=== PATIENT | female | born 1995 | race Caucasian/White ===

== ENCOUNTER 2025-01-18 13:15 | Emergency (ER) | payer OTHER, SELFPAY ==
--- NOTE | ~2025-01-18 | XR_ITS ---
EXAMINATION: XR foot LT min 3V, 01/18/2025 13:54 CDT HISTORY: HYPEREXTENSION INJURY, GEN MIDFOOT PAIN, LAT HINDFOOT SWELL. COMPARISON: No comparisons available. Findings: No acute fracture or malalignment. No significant degenerative changes. Soft tissues unremarkable. Impression: No acute fracture or malalignment. Reviewed, dictated and finalized at location A. Impression: No acute fracture or malalignment.
[2025-01-18 13:25] VITALS: BP 136/78; PULSE 93; RESP 18; TEMP 36.2; O2SAT 100
--- OUTSIDE RECORDS SUMMARY | 2025-01-18 13:27 | XMS_ITS | Encounter Summary ---
Author Organization [facility] Healthcare Address [address] [place] [address] Care Team Providers Care Repairer Engine Production Name Role Phone No, Physician Primary Care Provider [phone] Encounter Details Date Type Department Care Team (Late st Contact Info) Description 01/03/2025 Results Follow-Up [facility] Medical Group Convenient Care at [address] [place] [phone] Lisa Estevez, INSERTING OPERATOR [address] [place] [address] Urine culture Urine, bladder Social History Tobacco Use Types Packs/Day Years Used Date Smoking Tobacco: Former Cigarettes Smokeless Tobacco: Never Comments:Smoking History Pac ks/day: 0.5 Packs Alcohol Use Standard Drinks/Week Comments No 0 (1 standard drink = 0.6 oz pur e alcohol) Personal Safety Answer Date Recorded Have you ever been in or are you currently in a harmful physical or emotional relationship or is someone making you feel afraid or unsafe? 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 Pt was called as well . * Result Encounter Note - Matthew Antonio MA - 01/05/2025 8:52 AM CDT Left voicemail to return call. * Result Encounter Note - Ria Ritchie NP - 01/04/2025 12:13 PM CDT Preliminary report. No antibiotic prescribed, Flexeril was prescribed for lower back pain. documented in this encounter Plan of Treatment Not on file documented as of this encounter Visit Diagnoses Not on filedocumented in this encounter Care Teams Repairer Engine Production Relationship Specialty Start Date End Date No, Physician PCP - General 02/23/19 documented as of this encounter
--- OUTSIDE RECORDS SUMMARY | 2025-01-18 13:27 | XMS_ITS | Clinical Summary ---
Author Organization [facility] Address [address] [place] [address] Phone Care Team Providers Care Clerical Aide Teacher Name Role Phone Lovely Jordan APRN, MASTIC WORKER Primary Care Provider [phone] Allergies Active Allergy Reactions Criticality Noted Date Comments Penicillin G Hives High Reaction: Hives, Penicillins Hives High 03/05/2016 Medications Vit-Fe Fumarate-FA ( VITAMIN PO) Take by mouth. Act fatmata naproxen (NAPROSYN) 500 MG TabletIndicatio ns:Acute bilateral low back pain without sciatica Take 1 Tab by mouth 2 times daily (with meals). 30 Tab 07/27/19 20 Active Additional Information Patient not taking.Reported on 01/16/2025 albuterol 108 (90 Base) MCG/ACT Aerosol Solution take 2 Puffs by inhalation every 4 hours as needed (shortness of breath). 8.5 g 06/02/19 21 Active Additional Information Patient not taking.Reported on 01/16/2025 ibuprofen (MOTRIN) 600 MG Tablet Take 600 mg by mouth. 09/14/19 21 Active albuterol (ProAir HFA) 108 (90 Base) MCG/ACT Aerosol SolutionIndicat ions:Cough take 2 Puffs by inhalation every 4 hours as needed for Wheezing or Cough. 18 g 03/02/20 21 Active Additional Information Patient not taking.Reported on 01/16/2025 amphetamine-dex troamphetamine (ADDERALL XR) 15 MG CAPSULE SR 24 HR Take 15 mg by mouth every morning. 03/07/20 24 Active dicyclomine (BENTYL) 20 MG Tablet Take 1 Tablet by mouth every 6 hours. 30 Tablet 04/11/20 24 Active Additional Information Patient not taking.Reported on 01/16/2025 amphetamine-dex troamphetamine (ADDERALL XR) 25 MG CAPSULE SR 24 HR take 1 capsule by mouth daily in the morning 12/16/19 25 Active methylPREDNISol one (MEDROL) 4 MG Tablet 6 tabs day 1, 5 tabs day 2, 4 tabs day 3, 3 tabs day 4, 2 tabs day 5, 1 tab day 6 21 Tablet 01/17/20 25 025 Active azithromycin (ZITHROMAX) 250 MG Tablet Take 2 tabs today, then 1 tab daily for next 4 days 02/20/20 19 025 Discontinu ed(Reorder ) azithromycin (ZITHROMAX) 250 MG TabletIndicatio ns:Non-recurren t acute suppurative otitis media of right ear without spontaneous rupture of tympanic membrane Take 2 Tablets by mouth daily for 1 day, THEN 1 Tablet daily for 4 days. 6 Tablet 01/09/20 25 025 Active Problems Problem Noted Date Diagnosed Date Obesity (BMI 30-39.9) 04/25/2024 Asthma, mild intermittent 03/23/2018 Unknown and unspecified causes of morbidity 11/02 Overview (03/23/2018): Overview: Migraine Syncope 08/16/2014 Overview (01/16/2025): Syncope Mixed anxiety depressive disorder 06/07/2014 Overview (03/23/2018): Overview: Anxiety depression Asthma 12/22/2012 Overview (03/23/2018): Overview: Asthma Attention deficit disorder (ADD) without hyperac tivity 12/22/2012 Overview (03/23/2018): Overview: ADD (attention deficit disorder) Knee pain 01/30/2012 Encounters Date Type Department Care Team Description 01/16/2025 4:45 PM CDT [facility] [address] [place] [phone] Lovely Jordan APRN, CASIE Dermatitis (Primary Dx) 01/16/2025 Travel 01/08/2025 2:10 PM CDT Urgent Care [facility] [address] [place] [phone] Javier Corley APRN, CASIE Non-recurrent acute suppurative otitis media of right ear without spontaneous rupture of tympanic membrane (Primary Dx) Discharge Disposition: Discharged to home or Selfcare 01/08/2025 Travel from Last 3 Months Immunizations Immunization Administration Dates Next Due DTAP VACCINE 01/28/2001 DTP Vaccine 1995,1995,1995 DTP-Hib 12/23/1996 Hepatitis B Vaccine, Pediatric/adolescent 1995,1995,1995 Hib Vaccine,unspecified Formulation 1995,0 1995,1995 Inactivated Polio Vaccine 01/28/2001 Influenza Vaccine, Quadrivalent, PF 04/18/2020,1 05/23/2017 Influenza, Injectable, Quadrivalent 02/21/2019 MMR Vaccine 01/28/2001,12/23/1996 OPV 12/23/1996,1995,1995 Pneumococcal Vaccine Adult - 23 Valent 8 TDAP Vaccine 06/28/2020,02/21/2019 Family History Medical History Relation Name Comments Heart Attack Father Heart Disease Father Hypertension Father Stroke Father Cancer Mother Miscarriage Mother Thyroid Disease Mother Thyroid Disease Sister Relation Name Status Comments Father Mother Alive Sister Alive Social History Tobacco Use Types Packs/Day Years Used Date Smoking Tobacco: Former Cigarettes Smokeless Tobacco: Never Tobacco Cessation:Counseling Given: Not Answered Alcohol Use Standard Drinks/Week Comments Yes 0 (1 standard drink = 0.6 oz pur e alcohol) occasional PHQ-2 Answer Date Recorded Total Score - Questions 1-9 0 01/02 Sexually Active Control Partners Comments Yes Condom Male Comments No Sex and Gender Information Value Date Recorded Sex Assigned at Not on file Legal Sex Female 8:32 PM CDT Gender Identity Not on file Sexual Orientation Not on file 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 Not on file Not on file Last Filed Vital Signs Vital Sign Reading Time Taken Comments Blood Pressure 118/70 01/08/2025 2:07 PM CDT Pulse 92 01/08/2025 2:07 PM CDT Temperature 36.4 C (97.5 F) 01/08/2025 2:07 PM CDT Respiratory Rate 16 01/08/2025 2:07 PM CDT Oxygen Saturation 99% 01/08/2025 2:07 PM CDT Inhaled Oxygen Concentration - - Weight 107.1 kg (236 lb 1.8 oz) 04/11/2024 4:01 AM HYDRAULIC TECHNICIAN Height 162.6 cm (5' 4) 04/11/2024 4:01 AM HYDRAULIC TECHNICIAN Body Mass Index 40.53 04/11/2024 4:01 AM HYDRAULIC TECHNICIAN Plan of Treatment Health Maintenance Due Date Last Done Comments Hepatitis C Virus (HCV) Screening 1995 Pneumococcal Immunization Combined (2 of 2 - PCV) 03/23/2019 03/23/2018 Human Papillomavirus (HPV) Immunization (1 - 3-dose SCDM series) 2022 Influenza Immunization (#1) 01/02/202504/03, 02/21/2019, 03/23/2018 SARS-COV-2 Immunization ( - season) 2025 HPV/Cotest 2025 Cervical Cancer Screening (CCS) 04/25/2027 Pap Smear 04/25/2027 04/25/2024 DTaP/Tdap/Td Immunization (8 - Td or Tdap) 06/28/2030 06/28/2020, 02/21/2019, 01/28/2001, Additional history exists Respiratory Syncytial Virus (RSV) Immunization (Adult) (1 - 1-dose 75+ series) 2070 Hepatitis B Immunization Completed 996, 1995, 1995 Meningococcal Immunization (ACWY) Aged Out No longer eligible based on patient's age to complete this topic Rotavirus Immunization Aged Out No lo nger eligible based on patient's age to complete this topic Procedures Procedure Name Priority Date/Time Associated Diagnosis Comments PATHOLOGY CYTOLOGY GENETIC SUPERVISOR 04/25/2024 12:00 AM HYDRAULIC TECHNICIAN from Last 3 Months or Most Recently Relevant to Health Maintenance Results * PATHOLOGY CYTOLOGY GENETIC SUPERVISOR (04/25/2024 12:00 AM HYDRAULIC TECHNICIAN) 04/25/2024 us Provider Scan PATHOLOGY/CYTOLOGY ORDERABLES Fi nal Result SCAN from Last 3 Months or Most Recently Relevant to Health Maintenance Insurance [facility] Advance Directives * Full Code (Latest Code Status on File) Date Activated Date Inactivated Comments 06/25/2016 5:32 PM 06/25/2016 7:32 PM CPR-Full Cesario atment: FULL ARREST: Attempt Resuscitation/CPR wit intubation and mechanical ventilation. PRE-ARREST: Use entire range of life support measures to stabilize the patient. Care Teams Clerical Aide Teacher Relationship Specialty Start Date End Date Lovely Jordan, ELECTRONIC TECH, MASTIC WORKER [address] [place] [address] PCP - General Certified Nurse Practitioner 04/04/24
--- OUTSIDE RECORDS SUMMARY | 2025-01-18 13:27 | XMS_ITS | Clinical Summary ---
Author Organization [facility] [id number] Address [address] [place] [phone] Care Team Providers Care Staff Anesthesiologist Name Role Phone No, Physician Primary Care Provider [phone] Allergies Active Allergy Reactions Criticality Noted Date Comments Penicillin Hives Reaction: Hives, Penicillin G Penicillins Medications ibuprofen (ADVIL,MOTRIN) 600 mg tabletIndicatio ns:Cramps Take 1 tablet (600 mg total) by mouth every 6 (six) hours as needed for pain 30 tablet 2 1 Active Additional Information Patient not taking.Reported on 01/02/2025 vit-iron fum-folic ac 27 mg iron- 0.8 mg tabletIndicatio ns:Vitamin Deficiency Prevention Take 1 tablet by mouth daily 30 tablet 11 1 Active Additional Information Patient not taking.Reported on 01/02/2025 acetaminophen (TYLENOL) 500 mg tablet Take 1 tablet (500 mg total) by mouth every 6 (six) hours as needed for pain 30 tablet 3 Active Additional Information Patient not taking.Reported on 01/02/2025 methylPREDNISol one (Medrol, Sid,) 4 mg DosepackIndicat ions:Sore throat follow package directions 21 tablet 4 Active Additional Information Patient not taking.Reported on 01/02/2025 dextroamphetami ne-amphetamine XR (ADDERALL XR) 15 mg 24 hr capsule Take 1 capsule (15 mg total) by mouth daily Active cyclobenzaprine (FLEXERIL) 10 mg tabletIndicatio ns:Urinary pain Take 1 tablet (10 mg total) by mouth every 8 (eight) hours as needed for muscle spasms (Pain) for up to 5 days 15 tablet 5 Active Active Problems Problem Noted Date Diagnosed Date Obesity (BMI 30-39.9) 04/25/2024 Asthma, mild intermittent 03/23/2018 Migraine 11/28/2014 Overview (08/09/2016): Migraine Syncope 08/16/2014 Overview (08/09/2016): Syncope Mixed anxiety depressive disorder 06/07/2014 Overview (08/09/2016): Anxiety depression Attention deficit disorder (ADD) without hyperac tivity 12/22/2012 Overview (08/07/2016): ADD (attention deficit disorder) Asthma 12/22/2012 Overview (08/07/2016): Asthma Knee pain 01/30/2012 Encounters Date Type Department Care Team Description 01/03/2025 Results Follow-Up [facility] Medical Group Convenient Care at [address] [phone] Lisa Estevez NP Urine culture Urine, bladder 01/02/2025 2:01 PM CDT - 01/02/2025 11:59 PM [place] [address] Urinary pain Discharge Disposition: Discharge to home or self care 01/02/2025 2:00 PM CDT Office Visit [facility] Medical [facility] Convenient Care at [address] [phone] Ria Ritchie NP Urinary pain (Primary Dx) from Last 3 Months Immunizations Immunization Administration Dates Next Due Influenza, Unspecified 02/21/2019 Surgical History Surgery Date Site/Laterality Comments OTHER SURGICAL HISTORY Exercise-induced asthma: No inhaler since 2014 OTHER SURGICAL HISTORY Anxiety/depression: No medication since 2014 OTHER SURGICAL HISTORY 2016 : 20 hr labor SECTION 05/04/2020 - 05/03/2021 Medical History Medical History Date Comments Asthma Asthma Depression Depression Anxiety disorder Anxiety Hx Other Medical Headache, migra ine Hx Other Medical Exercise-induce d asthma; Comments: RED 04/03/2016 - Hx Other Medical Anxiety/depress ion; Comments: RED 04/03/2016 - Hx Other Medical ; Comm ents: Labor, . Pushed x 2 hours. MSF. anemia. 1' perineal laceration.; Outcome: 40W2D week 8lb(s) 1 oz Female ADHD (attention deficit hype ractivity disorder) Family History Medical History Relation Name Comments Heart attack Father Myocardial infa rction; Cause of : Myocardial infarction Hyperlipidemia Father High choleste rol; Hypertension Father Hypertension; Stroke Father Stroke; Breast cancer Mother Onset 30s, que stionable details Cervical cancer Mother maternal LEON exposure Headache Mother Headaches; Hyperlipidemia Mother High choleste rol; Other Mother Scleroderma; Seizures Mother Seizure disorde r; Heart attack Other 1 Family history of Myocardial infarction; RED 04/03/2016 - PGM, PGF Hypertension Other 2 Family history of Hypertension; RED 04/03/2016 - PGM, PGF Lung cancer Paternal Grandmother Cancer, lung; Hyperlipidemia Sister High choleste rol; Relation Name Status Comments Father (Age 42) Mother Other 1 Other 2 Paternal Grandmother Sister Social History Tobacco Use Types Packs/Day Years Used Date Smoking Tobacco: Former Cigarettes Smokeless Tobacco: Never Tobacco Cessation:Counseling Given: Not Answered Comments:Smoking History Packs/day: 0.5 Packs Alcohol Use Standard Drinks/Week Comments [...] on file Legal Sex Female 10:20 AM BRUSH MATERIAL PREPARER Gender Identity Not on file Sexual Orientation Not on file Occupation Industry Job Start Date Job End Date Not on file Not on file Not on file Not on file Obstetrics History Para Term AB IAB SAB Ectopic Multiple Livin g Live Births 3 3 3 0 0 0 3 2 Date Outcome GA Total Labor Labor/2nd/3rd Weight Sex Type Anes PTL Colleen A1 A5 Name Clin 2016 Term F Vag-S pont Complications:None 2019 Term 40w 6d 3h 49m 2h 48m/0h 52m/0h 09m 3.75 kg (8 lb 4.3 oz) F Vag-S pont Epidur al Y Livin g 9 9 CUMMI NGS,G IRBLUE santiago, Antonella Silveira MD Complications:None Delivery Location:[facility] ([facility]) 2020 Term 39w 3d 6h 44m 4h 37m/2h 06m/0h 01m 4.633 kg (10 lb 3.4 oz) M CS-LT ranv Epidur al N Livin g 8 9 CUMMI NGS,B OYMEG TIANNA santiago, Antonella Silveira MD Complications:Failure to Pro hermila in Second Stage Delivery Location:[facility] ([facility] PROCEDURE) Last Filed Vital Signs Vital Sign Reading Time Taken Comments Blood Pressure 120/80 01/02/2025 2:08 PM CDT Pulse 78 01/02/2025 2:08 PM CDT Temperature 36.5 C (97.7 F) 01/02/2025 2:08 PM CDT Respiratory Rate 17 01/02/2025 2:08 PM CDT Oxygen Saturation 99% 01/02/2025 2:08 PM CDT Inhaled Oxygen Concentration - - Weight 94.3 kg (208 lb) 01/02/2025 2:08 PM CDT Height 162.6 cm (5' 4) 01/02/2025 2:08 PM CDT Body Mass Index 35.7 01/02/2025 2:08 PM CDT Plan of Treatment Health Maintenance Due Date Last Done Comments Depression Screening 1995 Hepatitis C Screening 1995 Varicella Vaccines (1 of 2 - 13+ 2-dose series) 01/16/2008 Pneumococcal vaccine <65 (2 of 2 - PCV) 03/23/2019 03/23/2018 HPV Vaccines (1 - 3-dose SCD M series) 2022 Influenza Vaccine (#1) 2025 , 02/21/2019, 03/23/2018 Cervical Cancer Screening 04/25/20252023, 01/19/2018, 08/14/2016 Regular Well Visit/Exam 18-64 04/25/2025 04/25/2024, 01/18/2018 DTaP/Tdap/Td Vaccine (8 - Td or Tdap) 06/28/2030 06/28/2020, 02/21/2019, 01/28/2001, Additional history exists Hepatitis B Screening Completed 1995 , 1995, 1995 Procedures Procedure Name Priority Date/Time Associated Diagnosis Comments POCT URINALYSIS DIPSTICK Routine 01/02/2025 2:13 PM CDT Urinary pain URINE CULTURE Routine 01/02/2025 2:01 PM CDT Urinary pain PAP WITH REFLEX TO HIGH RISK HPV Routine 04/25/2024 9:23 AM BRUSH MATERIAL PREPARER Screening for malignant neoplasm of the cervix from Last 3 Months or Most Recently Relevant to Health Maintenance Results * (ABNORMAL) POCT urinalysis dipstick (01/02/2025 2:13 PM CDT) Color, Urine, POC Yellow Clarity, ur, POC Clear Clear Glucose, ur, POC Negative Negative Bilirubin, ur, POC Negative Negative Ketones, ur, POC Negative Negative Specific [place], POC 1.030 1.003 - 1.030 Blood, ur, POC Small(A) Negative pH, ur, POC 6.0 5.0 - 8.0 Protein, ur, POC Negative Negative Urobilinogen, urine, POC 0.2 0.2 - 1.0 mg/dL Nitrite, ur, POC Negative Negative Leukocytes, ur, POC Negative Negative Lot Number [id number] Urine 01/02/2025 2:13 PM CDT Ria Ritchie NP POINT OF CARE TEST ORDERAB LES Final Result * Urine culture Urine, bladder (01/02/2025 2:01 PM CDT) Report Final Report: Growth indicative of contamination with periurethral nettie. Please submit a new specimen with special attention given to the collection process and to prompt transport to the laboratory. Comment:Testing performed by : [facility], [address] [place]., [address] Organism GROWTH INDICATES CONTAM WITH PERIURETHRAL NETTIE. [facility] Urine, bladder 01/02/2025 2: 01 PM CDT 01/02/2025 11:58 PM CDT Narrative CERNER - 01/04/2025 12:24 PM CDT Testing performed by [facility] Microbiology Laboratory ([phone]) Ria Ritchie NP LAB MICROBIOLOGY - GENERAL ORDERABLES Final Result [facility] [address] Department [place] [address] * Pap with reflex to High Risk HPV and Genotyping (Cytology Component) (04/25/2024 9:23 AM BRUSH MATERIAL PREPARER) Thin prep (Pap test) 04/25/2024 9:23 AM BRUSH MATERIAL PREPARER 04/26/2024 9:23 AM BRUSH MATERIAL PREPARER Narrative PATHOLOGY - 04/28/2024 4:04 PM BRUSH MATERIAL PREPARER [facility] Department of Pathology [address] [place], [place] [id number] Final Report Note to Patients: This report may contain a detailed description of human tissue sent by a health care provider to the laboratory for pathologic evaluation. The content of this report is essential for diagnosis and may provide important critical findings. This information may be unfamiliar to patients to review without a medical professional present. It is advised that the patient review this report in the presence of a health care provider who can answer questions and explain the details. Patient Name: GHADA URIBE Address: [address] [place] [address] Gender: F : 1995 (Age: 29) Service: Location: [facility] #: [id number] Patient Type: [facility] SPECIMEN Taken: 04/25/2024 Received: 04/26/2024 Accessioned:: 04/26/2024 Reported: 04/28/2024 Physician(s): MD Stephany Walter MD Diagnosis: SOURCE OF SPECIMEN Imaged Thinprep Pap Test w/ Reflex HPV - Photographic Engineer Cytologic Material: STATEMENT OF ADEQUACY - Specimen satisfactory for interpretation; endocervical/transformation zone component absent or insufficient GENERAL CATEGORIZATION: - Negative for intraepithelial lesion or malignancy VICTOR M Ma(ASCP) Report Electronically Reviewed and Signed Out By VICTOR M Ma(ASCP) 04/28/2024 16:04:04Specimen(s) Received: A: Imaged Thinprep Pap Test w/ Reflex HPV - Photographic Engineer Cytologic Material Clinical History: Last Menstrual Period: 04/03/24 The Pap test is a screening test used to aid in the detection of cervical cancer and its precursors. It should not be the sole means by which malignant and premalignant lesions are diagnosed. Both false negative and false positive results may occur. It also has poor sensitivity for the detection of endometrial lesions and should not be used to evaluate suspected endometrial abnormalities. For these reasons it is most important to obtain Pap tests at regular intervals. The performance characteristics of some immunohistochemical stains, fluorescence in-situ hybridization tests and immunophenotyping by flow cytometry cited in this report (if any) were determined by the Surgical Pathology Department at [facility] as part of an ongoing software quality test engineer program and in compliance with federally mandated regulations drawn from the Clinical Laboratory Improvement Act of 1988 (CLIA '88). Some of these tests rely on the use of analyte specific reagents and are subject to specific labeling requirements by the US Food and Drug Administration. Such diagnostic tests may only be performed in a facility that is certified by the Department of Health and Human Services as a high complexity laboratory under CLIA '88. The FDA has determined that such clearance or approval is not necessary. This test is used for clinical purposes. It should not be regarded as investigational or for research. Nevertheless, federal rules concerning the medical use of analyte specific reagents require that the following disclaimer be attached to the report: This test was developed and its performance characteristics determined by the Surgical Pathology Department [facility]. It has not been cleared or approved by the U. S. Food and Drug Administration. Stephany Perdomo MD LAB CYTOLOGY ORDERABL ES Final Result PATHOLOGY [address] [place] [address] from Last 3 Months or Most Recently Relevant to Health Maintenance Insurance [facility] Advance Directives For more information, please contact: [phone] * Full Code (Latest Code Status on File) Date Activated Date Inactivated Comments 09/13/2020 2:57 AM 09/14/2020 4:31 PM * Full Code Date Activated Date Inactivated Comments 09/12/2020 7:01 AM 09/13/2020 2:57 AM Full CPR in case of cardiopulmonary arrest * Full Code Date Activated Date Inactivated Comments 05/19/2019 11:43 AM 05/21/2019 6:11 PM Full CPR in case of cardiopulmonary arrest Care Teams Staff Anesthesiologist Relationship Specialty Start Date End Date No, Physician PCP - General 02/23/19
[2025-01-18] MEDS: TETANUS,DIPHTHERIA,AC PERTUSSIS ADULT (0.5 ML) BOOSTRIX IM (13:59)
[2025-01-18] MEDS: IBUPROFEN 400 MG TABLET 800 MG PO (14:13)
--- NOTE | 2025-01-18 14:26 | ED_ITS ---
HPI - Extremity Injury (Lower) General Chief Complaint: Extremity Injury, Lower Stated Complaint: Left ankle injury Time Seen by Provider: 01/18/25 13:48 Source: patient and RN notes reviewed Mode of arrival: ambulatory Limitations: no limitations History of Present Illness HPI Narrative: Patient presents today complaining of left lateral foot pain after she rolled her foot while caring a chair just prior to arrival. Reports some tingling to the dorsum of the foot as well. Currently rates her pain 7/10. No OTC treatment prior to arrival. Related Data Home Medications ?Medication ?Instructions ?Recorded ?Confirmed ?Last Taken ?Type dextroamphetamine-amphetamine ER PO 01/18/25 Unknown History 25 mg 24hr capsule,extend release methylprednisolone 4 mg tablets in mg 01/18/25 Unknow n History a dose pack Allergies Allergy/AdvReac Type Severity Reaction Status Date / Time Penicillins Allergy Intermediate Hives Verified 01/18/25 13:50 PMFSH Comments At time of signature, I have reviewed and agree with nursing past medical, surgical, social and family history unless otherwise noted. Please see nursing chart for further information. There is no relevant family history pertinent to the presenting complaint Exam Narrative: GENERAL: Well-appearing, well-nourished, and in no acute distress. HEAD: Normocephalic, atraumatic. EYES: EOMI. No redness or drainage. Conjunctivae normal. ENT: Mucous membranes pink and moist. NECK: Normal AROM. CHEST: No respiratory distress. EXTREMITIES: Left foot: Tenderness and localized edema to the proximolateral foot with tenderness to the affected area. No tenderness, edema, or additional abnormalities to the ankle. Distal sensation intact. Capillary refill normal. Pedal pulse normal. Pain increases to the affected area with range of motion in all directions. SKIN: Warm, dry, no rash. Capillary refill normal. Normal skin turgor. NEURO: No focal deficits. Alert and oriented x3. Gait steady. PSYCH: Normal affect. No signs of depression or anxiety. Course Course Level of Care: Express Care Visit Vital Signs Vital signs: Vital Signs Temperature 97.2 F L 01/18/25 13:25 Pulse Rate 93 01/18/25 13:25 Respiratory Rate 18 01/18/25 13:25 Blood Pressure 136/78 01/18/25 13:25 Pulse Oximetry 100 01/18/25 13:25 Oxygen Delivery Room Air 01/18/25 13:25 Temperature 97.2 F L 01/18/25 13:25 Pulse Rate 93 01/18/25 13:25 Respiratory Rate 18 01/18/25 13:25 Blood Pressure 136/78 01/18/25 13:25 Pulse Oximetry 100 01/18/25 13:25 Oxygen Delivery Room Air 01/18/25 13:25 Reviewed MDM - Extremity Injury (Lower) MDM Narrative Medical decision making narrative: 3-year-old female patient presents today with left foot injury. She was caring a chair when her foot rolled. Pain, tenderness, swelling to the proximolateral foot. Upon exam, patient has tenderness and localized edema to the affected area. Ankle is unaffected. Foot x-ray is negative. Darrion wrap applied. Recommend RICE treatment with PCP or ortho follow up in 7-10 days if symptoms are not improving. Patient agrees with plan. Vital signs stable. Anticipatory guidance given. Differential Diagnosis Differential diagnosis: Likely other (Fracture, sprain, contusion) Imaging Data Radiologist's impression: ITS Impressions Foot X-Ray 01/18/25 14:03 Impression: No acute fracture or malalignment. Critical Care Time Critical Care Time Critical Care Time: No Discharge Plan Discharge Clinical Impression: Sprain of foot, left Qualifiers: Encounter type: initial encounter Qualified Code(s): S93.602A - Unspecified sprain of left foot, initial encounter Patient Disposition: Home Condition: Stable Instructions: Foot Sprain (ED) Additional Instructions: Your foot x-ray is negative today. Elevate and ice the foot. Taking anti- inflammatories such as Aleve or ibuprofen for pain and swelling. Follow-up with your PCP or orthopedist in 7-10 days if symptoms are not improving. Your blood pressure was elevated above 120/80 today at Urgent Care. This puts you above the threshold for follow up. Please schedule a followup visit with your personal physician as soon as possible, for further evaluation and treatment. Even blood pressure exceeding 120/80 may indicate pre-hypertension. Patient Language: Turkish Prescriptions: No Action methylprednisolone 4 mg tablets,dose pack dextroamphetamine-amphetamine 25 mg capsule,extended release 24hr PO Follow-up/Referrals: PHYSICIAN,MATERIAL HANDLING TECHNICIAN [Primary Care Provider, Internal Medicine] Time of Disposition: 14:30
[2025-01-18 14:35] VITALS: TEMP 36.2
== END 2025-01-18 14:35 | disposition home or self-care (01) ==
PROVIDERS: Emergency Provider Nurse Practitioner
DX: S93.602A Unspecified sprain of left foot, initial encounter (principal); X50.9XXA Other and unspecified overexertion or strenuous movements or postures, initial encounter; Z23 Encounter for immunization; F90.9 Attention-deficit hyperactivity disorder, unspecified type
CPT/HCPCS: 73630; 90471; 90715; 99203; A9270; G0463